=== PATIENT | female | born 1990 | race African-American/Black ===

== ENCOUNTER 2016-04-02 20:23 | Emergency (ER) | payer OTHER ==
[~2016-04-02] VITALS: Ht 160 cm; Wt 77.1 kg
[~2016-04-02 20:23] MED LIST: CIPR500T94 PO; ELTR75TA PO; OXYC-323 PO; PHEN-318 PO
[2016-04-02 20:30] VITALS: BP 119/67
[2016-04-02] MEDS ORDERED: FLUT9.9S NS (21:23)
[2016-04-02] MEDS ORDERED: AZIT250T PO (21:23)
--- NOTE | 2016-04-02 21:23 | PHYS DOC ---
Past Medical History Past Medical History: Anemia, STD, Other Additional Past Medical Histor: Aplastic anemia, Gonorrhea of the throat, Paroxysmal nocturnal hemoglobinuri Past Surgical History: Other Additional Past Surgical Histo: Mediport right anterior chest. Additional Information: nonsmoker Alcohol Use: None Drug Use: None Adult General Chief Complaint Chief Complaint: Congestion HPI HPI Patient is a 25 year old female who presents with subjective fever and nasal congestion starting last night. She has a frontal headache as well. She denies sore throat, ear pain, shortness breath, vomiting, or diarrhea. Review of Systems Review of Systems Constitutional: Reports subjective fever. Eyes: Denies change in visual acuity, redness, or eye pain. [] HENT: Denies ear pain or sore throat. Reports nasal congestion. Respiratory: Denies cough or shortness of breath. [] Cardiovascular: Denies chest pain, palpitations or edema. [] GI: Denies abdominal pain, nausea, vomiting, bloody stools or diarrhea. [] Integument: Denies rash or skin lesions. [] Neurologic: Denies focal weakness or sensory changes. Reports frontal headache. Allergies Allergies Allergies Coded Allergies Type Severity Reaction Last Updated Verified diphenhydramine Allergy Intermediate 09/29/15 No vancomycin Allergy Intermediate Itching 09/29/15 Yes Physical Exam Physical Exam Constitutional: Well developed, well nourished, no acute distress, non-toxic appearance. [] HENT: Normocephalic, atraumatic, bilateral external ears normal, oropharynx moist, no oral exudates, nose normal. Bilateral TMs without erythema or bulging. There is no posterior pharyngeal erythema or tonsillar edema. Bilateral nasal turbinates are significantly swollen and erythematous with purulent drainage. Eyes: PERRLA, EOMI, conjunctiva normal, no discharge. [] Neck: Normal range of motion, no tenderness, supple, no stridor. [] Cardiovascular: Heart rate regular rhythm, no murmur [] Lungs & Thorax: Bilateral breath sounds clear to auscultation without wheezes, rales, or rhonchi. Skin: Warm, dry, no erythema, no rash. [] Neurologic: Alert and oriented X 3, normal motor function, normal sensory function, no focal deficits noted. [] Psychologic: Affect normal, judgement normal, mood normal. [] Current Patient Data Vital Signs Vital Signs Date Time Temp Pulse Resp B/P Pulse Ox O2 Delivery O2 Flow Rate FiO2 04/02/16 20:30 98.5 97 18 96 Room Air 98.5 EKG EKG [] Radiology/Procedures Radiology/Procedures [] Course & Med Decision Making Course & Med Decision Making Pertinent Labs and Imaging studies reviewed. (See chart for details) [] Dragon Disclaimer Dragon Disclaimer This electronic medical record was generated, in whole or in part, using a voice recognition dictation system. Departure Departure Impression: Primary Impression: Sinusitis Disposition: HOME, SELF-CARE Condition: STABLE Referrals: NO PCP (PCP) Patient Instructions: Sinusitis, [id number] Additional Instructions: Please complete all the prescribed antibiotic. Please use the prescribed nose spray daily to help decrease nasal congestion and swelling. Please follow-up with your doctor within the next week. Return to the emergency department with any new or concerning symptoms. Scripts Fluticasone Propionate (Flonase Allergy Relief)9.9 Ml [place].susp2 Sprays NS DAILY #1 BOTTLE Prov:PHU BLACKMON 04/02/16 Azithromycin (Zithromax)250 Mg Tablet1 Pkg PO UD #6 TAB Prov:PHU BLACKMON 04/02/16 Problem Qualifiers Primary Impression: Sinusitis Sinusitis location: frontal Chronicity: acute Recurrence: not specified as recurrent Qualified Code: J01.10 - Acute frontal sinusitis, unspecified PHU BLACKMON Apr 02, 2016 21:23
== END 2016-04-02 21:35 | disposition home or self-care (01) ==
LOC: ER 20:23
DX: J32.9 Chronic sinusitis, unspecified (principal); R50.9 Fever, unspecified; Z88.1 Allergy status to other antibiotic agents; Z88.8 Allergy status to other drugs, medicaments and biological substances
CPT/HCPCS: 99283

== ENCOUNTER 2016-04-22 18:50 | Inpatient (IN) | payer OTHER ==
[~2016-04-22] VITALS: Ht 236.2 cm; Wt 756.1 kg
[~2016-04-22 18:50] MED LIST changes: +AZIT250T PO; +FLUT9.9S NS
[2016-04-22] MEDS ORDERED: KETOROLAC TROMETHAMINE 30 MG/ML SYRINGE. IV ONE (20:30)
[2016-04-22] MEDS ORDERED: IV NORMAL SALINE 1000ML BAG 1,000 ML IV ONE (20:30)
[2016-04-22 20:38] LABS: BILIRUBIN,URINE NEGATIVE (NEG); GLUCOSE,URINE NEGATIVE (NEG); NITRITE,URINE NEGATIVE (NEG); PROTEIN,URINE NEGATIVE (NEG-TRACE)
[2016-04-22 20:58] LABS: BACTERIA,URINE 0 /HPF (0-FEW); RBC,URINE 0 /HPF (0-2); WBC,URINE OCC /HPF (0-4)
[2016-04-22 20:59] LABS: SQUAMOUS EPITHELIAL CELL,UR MOD /LPF
[2016-04-22 21:07] LABS: BASO % 0 % (0-3); EOS % 0 % (0-3); LYMPH # 1.1 x10^3/uL (1.0-4.8); LYMPH % 64 % (24-48); MEAN CORPUSCULAR HEMOGLOBIN 43 pg (25-35); MEAN CORPUSCULAR HGB CONC 34 g/dL (31-37); MEAN CORPUSCULAR VOLUME 127 fL (79-100); MONO % 2 % (0-9); NEUT % 34 % (31-73); PLATELET COUNT 33 x10^3/uL (140-400); RED BLOOD COUNT 1.59 x10^6/uL (3.50-5.40); RED CELL DISTRIBUTION WIDTH 15.6 % (11.5-14.5)
[2016-04-22 21:12] LABS: CALCIUM 8.8 mg/dL (8.5-10.1); CREATININE 0.7 mg/dL (0.6-1.0); GFR 123.4; POTASSIUM 3.5 mmol/L (3.5-5.1)
[2016-04-22 21:17] LABS: ALBUMIN 4.1 g/dL (3.4-5.0); ALBUMIN/GLOBULIN RATIO 1.3 (1.0-1.7); TOTAL BILIRUBIN 0.8 mg/dL (0.2-1.0); TOTAL PROTEIN 7.2 g/dL (6.4-8.2)
[2016-04-22 21:21] LABS: HEMATOCRIT 20.2 % (36.0-47.0); HEMOGLOBIN 6.8 g/dL (12.0-15.5); WHITE BLOOD COUNT 1.8 x10^3/uL (4.0-11.0)
--- NOTE | 2016-04-22 21:22 | PHYS DOC ---
Past Medical History Past Medical History: Other Additional Past Medical Histor: PAROXSYMAL AND NOCTURNAL HEMOGLOBINURIA, APLASTIC ANEMIA Past Surgical History: Other Additional Past Surgical Histo: PORT FOR CHEMO Alcohol Use: None Drug Use: None Adult General Chief Complaint Chief Complaint: PAIN CONTROL HPI HPI 25-year-old female with a history of aplastic anemia presents stating she feels some body aches and generalized fatigue. She denies any chest pain or shortness of breath. She denies dyspnea on exertion. She has not had any bleeding. [] Review of Systems Review of Systems Constitutional: Denies fever or chills [] Eyes: Denies change in visual acuity, redness, or eye pain [] HENT: Denies nasal congestion or sore throat [] Respiratory: Denies cough or shortness of breath [] Cardiovascular: No additional information not addressed in HPI [] GI: Denies abdominal pain, nausea, vomiting, bloody stools or diarrhea [] : Denies dysuria or hematuria [] Musculoskeletal: Body aches [] Integument: Denies rash or skin lesions [] Neurologic: Denies headache, focal weakness or sensory changes [] Endocrine: Denies polyuria or polydipsia [] Current Medications Current Medications Current Medications Medications (Trade) Dose Ordered Sig/Sherman Start Time Stop Time Status Last Admin Dose Admin Acetaminophen (Tylenol) 650 mg PRN Q4HRS PRN 04/22/16 21:30 04/23/16 16:40 DC 04/23/16 09:25 650 MG Fentanyl Citrate 50 mcg 50 mcg PRN Q2HR PRN 04/22/16 21:30 04/23/16 16:40 DC 04/23/16 09:26 50 MCG Ketorolac Tromethamine (Toradol) 30 mg 1X ONCE 04/22/16 20:30 04/22/16 20:31 DC 04/22/16 20:57 30 MG Ondansetron HCl (Zofran) 4 mg PRN Q8HRS PRN 04/22/16 21:30 04/23/16 16:40 DC Sodium Chloride (Iv Sodium Chloride 0.9% 1000ml Bag) 1,000 ml @ 150 mls/hr Q6H40M 04/22/16 21:30 04/23/16 16:40 DC 04/22/16 22:49 150 MLS/HR Allergies Allergies Allergies Coded Allergies Type Severity Reaction Last Updated Verified vancomycin Allergy Intermediate Itching 09/29/15 Yes Physical Exam Physical Exam Constitutional: Well developed, well nourished, no acute distress, non-toxic appearance. [] HENT: Normocephalic, atraumatic, bilateral external ears normal, oropharynx moist, no oral exudates, nose normal. [] Eyes: PERRLA, EOMI, conjunctiva normal, no discharge. [] Neck: Normal range of motion, no tenderness, supple, no stridor. [] Cardiovascular:Heart rate regular rhythm, no murmur [] Lungs & Thorax: Bilateral breath sounds clear to auscultation [] Abdomen: Bowel sounds normal, soft, no tenderness, no masses, no pulsatile masses. [] Skin: Warm, dry, no erythema, no rash. [] Back: No tenderness, no CVA tenderness. [] Extremities: No tenderness, no cyanosis, no clubbing, ROM intact, no edema. [] Neurologic: Alert and oriented X 3, normal motor function, normal sensory function, no focal deficits noted. [] Psychologic: Affect normal, judgement normal, mood normal. [] Current Patient Data Vital Signs Vital Signs Date Time Temp Pulse Resp B/P Pulse Ox O2 Delivery O2 Flow Rate FiO2 04/22/16 19:04 98.4 93 18 100 Room Air 98.4 Lab Values Laboratory Tests Test 04/22/16 19:11 04/22/16 19:58 04/22/16 20:51 POC Urine HCG, Qualitative Hcg negative (Negative) Urine Color Yellow Urine Clarity Clear Urine pH 8.0 Urine Specific [place] 1.020 Urine Protein Negativemg/dL (NEG-TRACE) Urine Glucose (UA) Negativemg/dL (NEG) Urine Ketones (Stick) Negativemg/dL (NEG) Urine Blood Negative (NEG) Urine Nitrite Negative (NEG) Urine Bilirubin Negative (NEG) Urine Urobilinogen Dipstick 1.0mg/dL (0.2 mg/dL) Urine Leukocyte Esterase Negative (NEG) Urine RBC 0/HPF (0-2) Urine WBC Occ/HPF (0-4) Urine Squamous Epithelial Cells Mod/LPF Urine Bacteria 0/HPF (0-FEW) Urine Mucus Mod/LPF White Blood Count 1.8x10^3/uL (4.0-11.0) *L Red Blood Count 1.59x10^6/uL (3.50-5.40) L Hemoglobin 6.8g/dL (12.0-15.5) *L Hematocrit 20.2% (36.0-47.0) *L Mean Corpuscular Volume 127fL (79-100) H Mean Corpuscular Hemoglobin 43pg (25-35) H Mean Corpuscular Hemoglobin Concent 34g/dL (31-37) Red Cell Distribution Width 15.6% (11.5-14.5) H Platelet Count 33x10^3/uL (140-400) L Neutrophils (%) (Auto) 34% (31-73) Lymphocytes (%) (Auto) 64% (24-48) H Monocytes (%) (Auto) 2% (0-9) Eosinophils (%) (Auto) 0% (0-3) Basophils (%) (Auto) 0% (0-3) Neutrophils # (Auto) 0.6x10^3uL (1.8-7.7) L Lymphocytes # (Auto) 1.1x10^3/uL (1.0-4.8) Monocytes # (Auto) 0.0x10^3/uL (0.0-1.1) Eosinophils # (Auto) 0.0x10^3/uL (0.0-0.7) Basophils # (Auto) 0.0x10^3/uL (0.0-0.2) Segmented Neutrophils % 37% (35-66) Lymphocytes % 60% (24-48) H Monocytes % 1% (0-10) Promyelocytes % % (0-0) Blast Cells % (Manual) 2% (0-0) H Toxic Granulation Slight Platelet Estimate Decreased (ADEQUATE) Polychromasia Slight Hypochromasia Slight Ovalocytes Occ Sodium Level 143mmol/L (136-145) Potassium Level 3.5mmol/L (3.5-5.1) Chloride Level 109mmol/L (98-107) H Carbon Dioxide Level 25mmol/L (21-32) Anion Gap 9 (6-14) Blood Urea Nitrogen 9mg/dL (7-20) Creatinine 0.7mg/dL (0.6-1.0) Estimated GFR (Cockcroft-Gault) 123.4 BUN/Creatinine Ratio 13 (6-20) Glucose Level 97mg/dL (70-99) Calcium Level 8.8mg/dL (8.5-10.1) Total Bilirubin 0.8mg/dL (0.2-1.0) Aspartate Amino Transferase (AST) 10U/L (15-37) L Alanine Aminotransferase (ALT) 14U/L (14-59) Alkaline Phosphatase 55U/L (46-116) Total Protein 7.2g/dL (6.4-8.2) Albumin 4.1g/dL (3.4-5.0) Albumin/Globulin Ratio 1.3 (1.0-1.7) Laboratory Tests 04/22/16 20:51 Laboratory Tests 04/22/16 20:51 EKG EKG [] Radiology/Procedures Radiology/Procedures [] Course & Med Decision Making Course & Med Decision Making Pertinent Labs and Imaging studies reviewed. (See chart for details) [] Dragon Disclaimer Dragon Disclaimer This electronic medical record was generated, in whole or in part, using a voice recognition dictation system. Departure Departure Impression: Primary Impression: Symptomatic anemia Disposition: 09 ADMITTED INPATIENT Admitting Physician: Xenia Younger Condition: STABLE Referrals: NO PCP (PCP) GINA BRYANT DO Apr 22, 2016 21:22
[2016-04-22] MEDS ORDERED: IV NORMAL SALINE 1000ML BAG 1,000 ML IV SCH (21:30)
[2016-04-22] MEDS ORDERED: ACETAMINOPHEN 325 MG TABLET. PO PRN (21:30)
[2016-04-22] MEDS ORDERED: ONDANSETRON PF 4 MG/2 ML VIAL. IV PRN (21:30)
[2016-04-22 21:52] LABS: % BLASTS 2 % (0-0); HYPOCHROMIA SLIGHT; OVALOCYTES OCC; PLT ESTIMATE DECREASED (ADEQUATE); POLYCHROMASIA SLIGHT; TOXIC GRANULATION SLIGHT
[2016-04-22] MEDS: FENTANYL PF 100 MCG/2 ML VIAL. IV PRN (22:50)
--- NOTE | 2016-04-22 23:57 | ACF ---
Admission Forms Criteria ANEMIA, IRON DEFICIENCY OR UNSPECIFIED Clinical Indications for Inpatient Care (Place 'X' for any and all applicable criteria): Admission is indicated for ANY ONE of the following(1)(2)(3)(4)(5)(6)(7): [X] I. Inpatient admission required rather than observation care (Also use Anemia, Iron Deficiency or Unspecified: Observation Care guideline as appropriate) because of ANY ONE of the following: [] a) Hemodynamic instability that is severe or persistent [] b) Active bleeding that cannot be rapidly controlled [] c) CVS symptoms (i.e., dyspnea, chest pain, heart failure) that are severe or persistent [] d) Neurologic symptoms (i.e., cognitive impairment, recurrent syncope or near syncope) that are severe or persistent [] e) Cardiac arrhythmias of immediate concern [] f) Acute peripheral ischemia (e.g., pulseless, cool, mottled, or cyanotic extremity) [X] g) High-risk low platelet count [] h) Acute renal failure [] i) Ongoing transfusion for blood loss (greater than 2 units) [] j) IV fluid to replace significant ongoing (eg, >24 hours) losses (> 3 L/m2 per day) [] k) Pulmonary artery catheter monitoring [] l) Supplemental oxygen or respiratory treatments for over 24 hours that are performable only in acute inpatient setting [] m) Immediate inpatient surgery [] n) Other condition, treatment or monitoring requiring inpatient admission [] II Active massive hemorrhage [] III. Active hemolysis with rapidly progressive anemia [A](6) Extended stay beyond goal length of stay may be needed for (17)(18) []a) Diagnosed cause of anemia requiring longer hospitalization (eg, active GI bleeding, immune hemolysis requiring electrophoresis, complications of malignancy requiring acute care []b) Continued emergent anemia indicators (23) []c) Transfusion reactions []d) Associated leukopenia or thrombocytopenia needing inpatient care []e) Active comorbidities (eg, renal failure, heart failure) The original [facility] Care [facility] content created by [facility] has been revised. The portions of the content which have been revised are identified through the use of italic text or in bold. [facility] Guidelines has neither reviewed nor approved the modified material. All other unmodified content is copyright [facility] Care [employer]. Please see references footnoted in the original [facility] edition 2016 Admission Criteria Met?: Yes PATRICIA WOO Apr 22, 2016 23:57
[2016-04-23] VITALS (12 sets, daily range): BP systolic 96–111; BP diastolic 47–75
[2016-04-23] MEDS: FENTANYL PF 100 MCG/2 ML VIAL. IV PRN ×3 (01:13→09:26)
--- NOTE | 2016-04-23 01:41 | EKG ---
[facility] [address] [place] [address] Test Date: 2016-04-23 Test Time: 00:34:43 Pat Name: NATALYA GOTTI Department: Room: [facility] Gender: F Truck Loader: ELISE : 1990 Requested By: KANIKA ANN Order Number: [id number] Reading MD: Lorin Ramires Measurements Intervals [place] Rate: 59 P: 56 FL: 164 QRS: 63 QRSD: 82 T: 68 QT: 436 QTc: 432 Interpretive Statements SINUS RHYTHM NORMAL ECG Electronically Signed On 04-24-2016 21:07:30 CDT by Lorin Ramires
[2016-04-23 07:16] LABS: BASO % 1 % (0-3); EOS % 1 % (0-3); HEMATOCRIT 25.8 % (36.0-47.0); HEMOGLOBIN 8.8 g/dL (12.0-15.5); LYMPH # 1.6 x10^3/uL (1.0-4.8); LYMPH % 71 % (24-48); MEAN CORPUSCULAR HEMOGLOBIN 37 pg (25-35); MEAN CORPUSCULAR HGB CONC 34 g/dL (31-37); MEAN CORPUSCULAR VOLUME 107 fL (79-100); MONO % 2 % (0-9); NEUT % 25 % (31-73); PLATELET COUNT 30 x10^3/uL (140-400); RED BLOOD COUNT 2.41 x10^6/uL (3.50-5.40); RED CELL DISTRIBUTION WIDTH 28.9 % (11.5-14.5); WHITE BLOOD COUNT 2.2 x10^3/uL (4.0-11.0)
[2016-04-23 07:18] LABS: CALCIUM 8.2 mg/dL (8.5-10.1); CREATININE 0.6 mg/dL (0.6-1.0); GFR 147.4; POTASSIUM 3.8 mmol/L (3.5-5.1)
[2016-04-23 08:35] LABS: % SAT IRON 97 % (15-34); IRON,SERUM 189 ug/dL (50-170)
--- NOTE | 2016-04-23 08:59 | PDOC ---
Provider Note Provider Note Onc consult dictated- [id number] Aplastic Anemia- On promacta as outpt [facility]- On eculizumab at [facility], next dose 05/01 Labs at baseline. Sx improved after transfusion. Ok to DC from heme standpoint, f/u next week as planned. FARZANA BASURTO DO Apr 23, 2016 08:59
[2016-04-23] MEDS ORDERED: OXYCODONE/APAP 5/325 TABLET. PO PRN (11:45)
[2016-04-23] MEDS ORDERED: HEPARIN PF 500 UNIT/5 ML DISP.SYRIN. IV SCH (13:47)
--- NOTE | 2016-04-23 14:21 | SSS ---
ADMIT DATE: 04/23/2016 CHIEF COMPLAINT: Weakness and bodyaches. HISTORY OF PRESENT ILLNESS: The patient is a pleasant 25-year-old female who has aplastic anemia. She presented to the ER last night with body aches and weakness and fatigue, was noted to have a hemoglobin of 6.5, admitted the patient overnight for observation. This morning, she has been transfused, her hemoglobin is up to 6.5. We plan to discharge. PAST MEDICAL HISTORY: Aplastic anemia. ALLERGIES: VANCOMYCIN AND BENADRYL. FAMILY HISTORY: Coronary artery disease. SOCIAL HISTORY: She does not drink, smoke or take drugs. MEDICATIONS: Reviewed, please refer to the MRAD. REVIEW OF SYSTEMS: GENERAL: No history of weight change, weakness or fevers. SKIN: No bruising, hair changes or rashes. EYES: No blurred, double or loss of vision. NOSE AND THROAT: No history of nosebleeds, hoarseness or sore throat. HEART: No history of palpitations, chest pain or shortness of breath on exertion. LUNGS: Denies cough, hemoptysis, wheezing or shortness of breath. GASTROINTESTINAL: Denies changes in appetite, nausea, vomiting, diarrhea or constipation. GENITOURINARY: No history of frequency, urgency, hesitancy or nocturia. NEUROLOGIC: Denies history of numbness, tingling, tremor or weakness. PSYCHIATRIC: No history of panic, anxiety or depression. ENDOCRINE: No history of heat or cold intolerance, polyuria or polydipsia. EXTREMITIES: Denies muscle weakness, joint pain, pain on walking or stiffness. PHYSICAL EXAMINATION: VITAL SIGNS: Stable. GENERAL: She is alert, cooperative. HEART: Normal S1, S2. LUNGS: Clear. ABDOMEN: Soft. EXTREMITIES: No edema. SKIN: No rashes. PSYCHIATRIC: She is stable. VASCULAR: Good capillary refill. ENDOCRINE: No thyromegaly. LYMPHATICS: No cervical nodes. HEMATOPOIETIC: No bruising. ASSESSMENT AND PLAN: Acute on chronic aplastic anemia with resolution with transfusion. The patient was admitted overnight. We consulted hem/onc. They are okay with going home. We plan to discharge. DISPOSITION: Home. ACTIVITY: As tolerated. DIET: Low sodium. MEDICATIONS: Please see the MRAD. Total time 31 minutes. NIAL K. CASTLE, DO DR: DIANA/trae JOB#: [id number] / [id number]
--- NOTE | 2016-04-23 23:56 | CONS ---
DATE OF CONSULTATION: 04/23/2016 REFERRING PROVIDER: Dr. Echavarria. REASON FOR CONSULTATION: Aplastic anemia/paroxysmal nocturnal hemoglobinuria. HISTORY OF PRESENT ILLNESS: The patient is a 25-year-old female who was diagnosed at the age of 10 with aplastic anemia. She has previously required ATG/cyclosporine/prednisone for this. She was diagnosed in 2011, also with paroxysmal nocturnal hemoglobinuria and has been on eculizumab q. 2 weeks for this. Her oncology care is managed by Dr. Kiarn and she was last seen in his clinic on 04/03/2016. She presented with myalgias and fatigue. Her hemoglobin baseline is around 7.5 and her hemoglobin had dropped to 6.8. She has no other systemic symptoms of any viral infections. She generally takes Promacta for her aplastic anemia. She feels better after her transfusion overnight. PAST MEDICAL HISTORY: [facility], aplastic anemia, hepatic vein thrombosis. PAST SURGICAL HISTORY: Negative. FAMILY HISTORY: Mom and dad have hypertension, otherwise negative. SOCIAL HISTORY: She denies any tobacco, alcohol or drug use. ALLERGIES: BENADRYL AND VANCOMYCIN. CURRENT MEDICATIONS: Tylenol, fentanyl, Zofran, and normal saline. REVIEW OF SYSTEMS: A 10-point review of systems completed and unremarkable with the exception of the myalgias and fatigue, which are improved overnight. PHYSICAL EXAMINATION: VITAL SIGNS: Temperature 97.9, pulse 63, respiratory rate 18, blood pressure 106/61 with 100% O2 on room air. GENERAL: She is alert and oriented, but does appear fatigued, though it was just after I woke her up this morning. She is not in any distress. HEENT: Extraocular muscles are intact. No scleral icterus. Mucous membranes are moist. CARDIOVASCULAR: Heart is regular in rhythm and rate. LUNGS: Clear to auscultation bilaterally. ABDOMEN: Soft, nontender. EXTREMITIES: No edema. NEUROLOGIC: No focal deficits. IMAGING AND LABS: CBC 1.7, hemoglobin 7.5, platelet 34. This is unchanged from her baseline labs one month ago with the exception of her initial hemoglobin was 7.5, now it is down to 6.8. CMP was unremarkable. UA and chest x-ray also unremarkable. I added on iron studies, which have returned normal. B12 and folic acid are pending. ASSESSMENT AND PLAN: The patient is a 25-year-old female with the following medical problems: 1. History of aplastic anemia on Promacta 150 mg daily. She is aware that this is not carried in the hospital, so she will resume it when she discharges. 2. Paroxysmal nocturnal hemoglobinuria. She is on eculizumab every 2 weeks with her next dose planned on 05/01/2016. This is also a very specialized medicine she can only receive at [facility]. 3. Acute on chronic anemia. Her labs and symptoms have greatly improved with transfusion of blood overnight. Iron , B12, and folic acid returned normal as well. From a hematologic standpoint, she can be discharged at any time. She will resume care with her oncologist next week for ongoing Promacta and eculizumab. I alerted Dr. Kiran of her admission as well. FARZANA BASURTO DO DR: MO/trae JOB#: [id number] / [id number] YOLIE
== END 2016-04-23 14:22 | disposition home or self-care (01) | DRG 810 ==
LOC: ER 18:50 → 5 NORTH 21:30
PROVIDERS: ADMIT Internal Medicine; ATTEND Internal Medicine
PROC: 30233N1 Transfusion of Nonautologous Red Blood Cells into Peripheral Vein, Percutaneous Approach (ICD-10-PCS; principal; 2016-04-23)
DX: D61.9 Aplastic anemia, unspecified (principal); D59.5 Paroxysmal nocturnal hemoglobinuria [Marchiafava-Micheli]; Z82.49 Family history of ischemic heart disease and other diseases of the circulatory system; Z88.1 Allergy status to other antibiotic agents; Z88.8 Allergy status to other drugs, medicaments and biological substances; Z86.718 Personal history of other venous thrombosis and embolism
CPT/HCPCS: 36415; 80048; 80053; 81001; 81025; 82608; 82728; 82746; 83540; 83550; 85007; 85027; 86850; 86900; 86901; 86920; 93005; 96361; 96374; J1885; J3010; J7030; P9016; 99285-25

== ENCOUNTER 2017-01-06 13:37 | Emergency (ER) | payer OTHER ==
[~2017-01-06] VITALS: Ht 160 cm; Wt 68.0 kg
[2017-01-06 13:50] VITALS: BP 117/57
[2017-01-06] MEDS ORDERED: ALPRAZolam 0.5 MG TABLET PO ONE (14:45)
--- NOTE | 2017-01-06 15:22 | PHYS DOC ---
Past Medical History Past Medical History: Other Additional Past Medical Histor: PAROXSYMAL AND NOCTURNAL HEMOGLOBINURIA, APLASTIC ANEMIA Past Surgical History: Other Additional Past Surgical Histo: PORT FOR CHEMO Alcohol Use: None Drug Use: None Adult General Chief Complaint Chief Complaint: ANXIETY/PANIC ATTACK HPI HPI Patient is a 26 year old female with a history of a plastic anemia who presents today stating "I feel my body is excited and anxious". this has been going on since yesterday. Denies any use of illegal drugs. Patient denies any suicidal or homicidal ideation. Denies any chest pain or shortness of breath. She is in the ED with the boyfriend playing on her phone in no distress. She states she would like something to calm her down. Review of Systems Review of Systems Constitutional: Denies fever or chills [] Eyes: Denies change in visual acuity, redness, or eye pain [] HENT: Denies nasal congestion or sore throat [] Respiratory: Denies cough or shortness of breath [] Cardiovascular: No additional information not addressed in HPI [] GI: Denies abdominal pain, nausea, vomiting, bloody stools or diarrhea [] : Denies dysuria or hematuria [] Musculoskeletal: Denies back pain or joint pain [] Integument: Denies rash or skin lesions [] Neurologic: Denies headache, focal weakness or sensory changes [] Psych: anxiety All other systems were reviewed and found to be within normal limits, except as documented in this note. Current Medications Current Medications Current Medications Medications (Trade) Dose Ordered Sig/Sherman Start Time Stop Time Status Last Admin Dose Admin Alprazolam (Xanax) 0.5 mg 1X ONCE 01/06/17 14:45 01/06/17 14:46 DC 01/06/17 14:52 0.5 MG Allergies Allergies Allergies Coded Allergies Type Severity Reaction Last Updated Verified diphenhydramine Allergy Intermediate 04/23/16 Yes vancomycin Allergy Intermediate Itching 09/29/15 Yes Physical Exam Physical Exam Constitutional: Well developed, well nourished, no acute distress, non-toxic appearance. [] HENT: Normocephalic, atraumatic, bilateral external ears normal, oropharynx moist, no oral exudates, nose normal. [] Eyes: PERRLA, EOMI, conjunctiva normal, no discharge. [] Neck: Normal range of motion, no tenderness, supple, no stridor. [] Cardiovascular:Heart rate regular rhythm, no murmur [] Lungs & Thorax: Bilateral breath sounds clear to auscultation [] Abdomen: Bowel sounds normal, soft, no tenderness, no masses, no pulsatile masses. [] Skin: Warm, dry, no erythema, no rash. [] Back: No tenderness, no CVA tenderness. [] Extremities: No tenderness, no cyanosis, no clubbing, ROM intact, no edema. [] Neurologic: Alert and oriented X 3, normal motor function, normal sensory function, no focal deficits noted. [] Psychologic: Affect normal, judgement normal, mood normal. [] Current Patient Data Vital Signs Vital Signs Date Time Temp Pulse Resp B/P (MAP) Pulse Ox O2 Delivery O2 Flow Rate FiO2 01/06/17 13:50 99.8 113 16 98 Room Air 99.8 EKG EKG [] Radiology/Procedures Radiology/Procedures [] Course & Med Decision Making Course & Med Decision Making Pertinent Labs and Imaging studies reviewed. (See chart for details) Patient is in the ED complaining of anxiety that began yesterday. She states she feels very excited, and would like something to calm her down. She is in no distress. She was given a Xanax and feels better. Recommended following up with [facility] for anxiety as well as her PCP. Provided return precautions and discharged. Taryn Disclaimer Taryn Disclaimer This electronic medical record was generated, in whole or in part, using a voice recognition dictation system. Departure Departure Impression: Primary Impression: Anxiety Disposition: 01 HOME, SELF-CARE Condition: STABLE Referrals: UNKNOWN PCP NAME (PCP) Follow-up with [facility] as soon as you can. [phone] Patient Instructions: Anxiety and Panic Attacks, [id number] Additional Instructions: You were seen for anxiety. Please follow-up with [facility] as soon as he can for anxiety. Return to the ED symptoms worsen. ARIAN STYLES APRN Jan 06, 2017 15:22
== END 2017-01-06 15:32 | disposition home or self-care (01) ==
LOC: ER 13:37
DX: F41.9 Anxiety disorder, unspecified (principal); Z88.8 Allergy status to other drugs, medicaments and biological substances; Z88.1 Allergy status to other antibiotic agents
CPT/HCPCS: 99284

== ENCOUNTER 2017-05-23 08:29 | Emergency (ER) | payer OTHER ==
[2017-05-23] MEDS: IV NORMAL SALINE 1000ML BAG 1,000 ML IV ×2 (08:59→10:13)
[2017-05-23] MEDS: ACETAMINOPHEN 325 MG TABLET. PO (09:01)
[2017-05-23] MEDS: 0.9 % SODIUM CHLORIDE 10 ML DISP.SYRIN. IV (09:01)
[2017-05-23 09:05] LABS: URINE HCG POC HCG NEGATIVE (Negative)
[2017-05-23 09:07] LABS: BILIRUBIN,URINE NEGATIVE (NEG); CLARITY,URINE CLEAR; COLOR,URINE YELLOW; GLUCOSE,URINE NEGATIVE (NEG); NITRITE,URINE NEGATIVE (NEG); PH,URINE 5.5; PROTEIN,URINE NEGATIVE (NEG-TRACE)
[2017-05-23] MEDS: IBUPROFEN 200 MG TABLET. PO (09:09)
[2017-05-23 09:10] LABS: BASO % 0 % (0-3); EOS % 1 % (0-3); LYMPH # 0.2 x10^3/uL (1.0-4.8); LYMPH % 23 % (24-48); MEAN CORPUSCULAR HEMOGLOBIN 39 pg (25-35); MEAN CORPUSCULAR HGB CONC 35 g/dL (31-37); MEAN CORPUSCULAR VOLUME 114 fL (79-100); MONO % 2 % (0-9); NEUT # 0.6 x10^3uL (1.8-7.7); NEUT % 74 % (31-73); PLATELET COUNT 26 x10^3/uL (140-400); RED BLOOD COUNT 1.72 x10^6/uL (3.50-5.40); RED CELL DISTRIBUTION WIDTH 25.3 % (11.5-14.5)
[2017-05-23 09:15] LABS: WHITE BLOOD COUNT 0.8 x10^3/uL (4.0-11.0)
[2017-05-23 09:16] LABS: ADD MAN DIFF? YES; HEMATOCRIT 19.6 % (36.0-47.0); HEMOGLOBIN 6.8 g/dL (12.0-15.5)
[2017-05-23 09:21] LABS: INFLUENZA A PATIENT NEGATIVE (NEGATIVE); INFLUENZA B PATIENT NEGATIVE (NEGATIVE); OBC FLU VALID
[2017-05-23 09:22] LABS: LACTIC ACID 1.6 mmol/L (0.4-2.0)
[2017-05-23 09:24] LABS: SQUAMOUS EPITHELIAL CELL,UR MANY /LPF
[2017-05-23 09:24] LABS: TROPONINI < 0.017 ng/mL (0.000-0.055)
[2017-05-23 09:25] LABS: BACTERIA,URINE MODERATE /HPF (0-FEW); NEG OBC UR NEG; POS OBC UR POS; RBC,URINE OCC /HPF (0-2); U PREG PATIENT NEGATIVE (NEG)
[2017-05-23 09:29] LABS: ALBUMIN 4.1 g/dL (3.4-5.0); ALK PHOS 56 U/L (46-116); ALT (SGPT) 14 U/L (14-59); ANION GAP 9 (6-14); AST (SGOT) 11 U/L (15-37); BLOOD UREA NITROGEN 12 mg/dL (7-20); CALCIUM 9.1 mg/dL (8.5-10.1); CARBON DIOXIDE 23 mmol/L (21-32); CHLORIDE 104 mmol/L (98-107); CREATININE 0.8 mg/dL (0.6-1.0); DIRECT BILIRUBIN 0.2 mg/dL (0.0-0.2); GFR 104.9; GLUCOSE 113 mg/dL (70-99); SODIUM 136 mmol/L (136-145); TOTAL BILIRUBIN 1.3 mg/dL (0.2-1.0); TOTAL PROTEIN 7.2 g/dL (6.4-8.2)
[2017-05-23 09:30] LABS: POTASSIUM 2.9 mmol/L (3.5-5.1)
[2017-05-23] MEDS ORDERED: CONTRAST GIVEN MC (09:30)
[2017-05-23 09:31] LABS: CKMB MASS < 0.5 ng/mL (0.0-3.6); CREATINE KINASE 36 U/L (26-192)
[2017-05-23 09:31] LABS: NT-PRO BNP 21 pg/mL (0-124)
[2017-05-23] MEDS: IOHEXOL 300 MG/ML 100ML VIAL. IV (09:44)
[2017-05-23] MEDS: ONDANSETRON PF 4 MG/2 ML VIAL. IV (10:12)
[2017-05-23] MEDS: POTASSIUM CHLORIDE 20 MEQ TABLET.ER. PO (10:13)
[2017-05-23] MEDS: fentaNYL PF VIAL 100 MCG/2 ML VIAL IV (10:29)
[2017-05-23] MEDS: CEFEPIME HCL IV Push 2 GM VIAL. IVP (10:29)
[2017-05-23 11:05] LABS: % LYMPHS 28 % (24-48); % MONOS 1 % (0-10); % SEGS 71 % (35-66); ANISOCYTOSIS MARKED; NUCLEATED RBC 2; PLT ESTIMATE DECREASED (ADEQUATE)
[2017-05-23 11:06] LABS: SCHISTOCYTES OCC
[2017-05-23 11:07] LABS: BURR CELLS OCC
[2017-05-23] MEDS: LORazepam 1 MG TABLET PO (11:46)
[2017-05-23] MEDS ORDERED: CEFEPIME HCL 2 GM in IV DEXTROSE 5% 100 ML IV (14:00)
== END 2017-05-23 14:27 | disposition short-term general hospital (02) ==
LOC: ER 08:29
DX: D61.9 Aplastic anemia, unspecified (principal); R50.81 Fever presenting with conditions classified elsewhere; D59.5 Paroxysmal nocturnal hemoglobinuria [Marchiafava-Micheli]; D70.9 Neutropenia, unspecified; Z88.1 Allergy status to other antibiotic agents
CPT/HCPCS: 36415; 71045; 74177; 80048; 80076; 81001; 81025; 82553; 83605; 83880; 84443; 84484; 85007; 85025; 87040; 87086; 87804; 87804-59; 93005; 96361; 96374; 96375; 99291-25; J0692; J2060; J2405; J3010; J7030; Q9967

== ENCOUNTER 2017-09-02 14:51 | Emergency (ER) | payer OTHER ==
[2017-09-02] MEDS: DEXAMETHASONE 4 MG TABLET PO (15:54)
== END 2017-09-02 16:11 | disposition home or self-care (01) ==
LOC: ER 14:51
DX: H92.01 Otalgia, right ear (principal); H92.02 Otalgia, left ear; G89.29 Other chronic pain; M54.9 Dorsalgia, unspecified; M25.569 Pain in unspecified knee; G43.909 Migraine, unspecified, not intractable, without status migrainosus; Z88.1 Allergy status to other antibiotic agents; Z88.8 Allergy status to other drugs, medicaments and biological substances
CPT/HCPCS: 99283; J8540

== ENCOUNTER 2019-04-15 10:12 | Emergency (ER) | payer OTHER ==
[~2019-04-15] VITALS: Ht 160 cm; Wt 70.0 kg
[~2019-04-15 10:12] MED LIST changes: -OXYC-323 PO; +OXYC1TAB15 PO; +PRED20TA PO
[2019-04-15 12:15] VITALS: BP 134/85
[2019-04-15] MEDS: NAPROXEN 500 MG TABLET PO STA (13:22)
[2019-04-15] MEDS ORDERED: NAPR-514 PO (13:22)
--- NOTE | 2019-04-15 13:22 | PHYS DOC ---
Past Medical History Past Medical History: Other Additional Past Medical Histor: PAROXSYMAL AND NOCTURNAL HEMOGLOBINURIA, APLASTIC ANEMIA Past Surgical History: Other Additional Past Surgical Histo: PORT FOR CHEMO upper R chest Smoking Status: Never Smoker Alcohol Use: Occasionally Drug Use: None Adult General Chief Complaint Chief Complaint: FINGER INJURY HPI HPI Patient is a 28 year old female who presents to the ED today complaining of 10 out of 10 pain to the right thumb that began a week ago after she removed fake nail. Patient reports the pain is on the lateral aspects of the nailbed. States the pain is worse on touching the area. Describes the pain as throbbing and constant. Denies any fever. Denies any drainage from the area. Review of Systems Review of Systems Constitutional: Denies fever or chills [] Musculoskeletal: Reports pain to the right thumb Integument: Denies rash or skin lesions [] Neurologic: Denies headache, focal weakness or sensory changes [] All other systems were reviewed and found to be within normal limits, except as documented in this note. Current Medications Current Medications Current Medications Medications (Trade) Dose Ordered Sig/Sherman Start Time Stop Time Status Last Admin Dose Admin Diphtheria/ Tetanus/Acell Pertussis (ADACEL TDap SYRINGE) 0.5 ml ONCE ONCE 04/15/19 13:15 04/15/19 13:16 Naproxen (Naprosyn) 500 mg 1X STAT 04/15/19 13:08 04/15/19 13:13 DC Allergies Allergies Allergies Coded Allergies Type Severity Reaction Last Updated Verified diphenhydramine Allergy Intermediate 04/23/16 Yes vancomycin Allergy Intermediate Itching 09/29/15 Yes Physical Exam Physical Exam Constitutional: Well developed, well nourished, no acute distress, non-toxic appearance. [] Skin: Warm, dry, no erythema, no rash. [] Back: No tenderness, no CVA tenderness. [] Extremities: Right thumb with no obvious deformity, the nailbed appears to be scratched up from removal of the artificial nail, there is tenderness on the lateral aspect of the right nailbed. There is no obvious redness to warrant infection. Sensation is intact. +2 right radial pulse. Cap refill less than 2 seconds the right thumb. Sensation intact. Neurologic: Alert and oriented X 3, normal motor function, normal sensory function, no focal deficits noted. [] Psychologic: Affect normal, judgement normal, mood normal. [] Current Patient Data Vital Signs Vital Signs Date Time Temp Pulse Resp B/P (MAP) Pulse Ox O2 Delivery O2 Flow Rate FiO2 04/15/19 12:15 98.1 85 20 134/85 (101) 100 Room Air 98.1 EKG EKG [] Radiology/Procedures Radiology/Procedures [] Course & Med Decision Making Course & Med Decision Making Pertinent Labs and Imaging studies reviewed. (See chart for details) This is a 28-year-old female patient presenting to the ED today with a right thumb pain specifically around the nailbed that began a week ago after she removed artificial nail. There is no signs of infection. Recommended ice elevation. Tylenol/Motrin for pain. Discharge to home. Tetanus administered. Dragon Disclaimer Dragon Disclaimer This electronic medical record was generated, in whole or in part, using a voice recognition dictation system. Departure Departure Impression: Primary Impression: Finger pain, right Disposition: HOME, SELF-CARE Condition: STABLE Referrals: NO PCP (PCP) follow up with your doctor in 1-2 weeks Patient Instructions: Musculoskeletal Pain Additional Instructions: You were evaluated in the emergency room with pain and irritation to the right thumb. Consider soaking your right thumb in warm water with Epsom salt twice a day. Try to ice and elevate the extremity. Take naproxen as needed for pain. Follow-up with your own doctor in 1 to 2 weeks. Scripts Naproxen (NAPROXEN) 500 Mg Tablet 1 TAB PO BID for pain, #20 TAB 0 Refills Prov: ARIAN STYLES APRN 04/15/19 ARIAN STYLES APRN Apr 15, 2019 13:22
[2019-04-15] MEDS: DIPH,PERTUSS(ACELL),TET VAC/PF 0.5 ML SYRINGE. VAX IM ONE (13:23)
== END 2019-04-15 13:42 | disposition home or self-care (01) ==
LOC: ER 10:12
DX: M79.644 Pain in right finger(s) (principal); Z88.1 Allergy status to other antibiotic agents; Z88.5 Allergy status to narcotic agent
CPT/HCPCS: 90471; 90715; 99283

== ENCOUNTER 2019-04-21 14:32 | Emergency (ER) | payer OTHER ==
[~2019-04-21] VITALS: Ht 160 cm; Wt 82.0 kg
[~2019-04-21 14:32] MED LIST changes: +NAPR-514 PO
[2019-04-21 14:44] VITALS: BP 135/73
[2019-04-21] MEDS ORDERED: CEPH500C PO (15:26)
[2019-04-21] MEDS ORDERED: NAPR-514 PO (15:26)
--- NOTE | 2019-04-21 15:27 | PHYS DOC ---
Past Medical History Past Medical History: Other Additional Past Medical Histor: PAROXSYMAL AND NOCTURNAL HEMOGLOBINURIA, APLASTIC ANEMIA Past Surgical History: Other Additional Past Surgical Histo: PORT FOR CHEMO upper R chest Smoking Status: Never Smoker Alcohol Use: Occasionally Drug Use: None Adult General Chief Complaint Chief Complaint: THUMB HPI HPI Patient is a 28 year old AA female who presents to the emergency department with complaints of right thumb redness, warmth, and pain for the last week. She denies any injury or trauma to her thumb. Patient denies any drainage from her nailbed. She currently rates her pain a 10 out of 10 on the pain scale, the pain increases if the area is touched. Patient denies taking any medication for relief of pain prior to arrival. She also denies any fever, chills, body aches, cough, shortness of breath, nausea, vomiting, diarrhea, abdominal pain, numbness, or tingling. Review of Systems Review of Systems Complete ROS is negative unless otherwise noted in HPI. Allergies Allergies Allergies Coded Allergies Type Severity Reaction Last Updated Verified diphenhydramine Allergy Intermediate 04/23/16 Yes vancomycin Allergy Intermediate Itching 09/29/15 Yes Physical Exam Physical Exam See Above Constitutional: Well developed, well nourished, no acute distress, non-toxic appearance. [] HENT: Normocephalic, atraumatic, bilateral external ears normal, oropharynx moist, no oral exudates, nose normal. [] Eyes: PERRLA, EOMI, conjunctiva normal, no discharge. [] Neck: Normal range of motion, no stridor. [] Cardiovascular:Heart rate regular rhythm Lungs & Thorax: Respirations even and unlabored, no retractions, no respiratory distress Skin: Warm, dry; erythema and warmth noted to medial aspect of right thumb at the nailbed, consistent with cellulitis of thumb, possible paronychia Extremities: No cyanosis, ROM intact, no edema. [] Neurologic: Alert and oriented X 3, no focal deficits noted. [] Psychologic: Affect normal, judgement normal, mood normal. [] Current Patient Data Vital Signs Vital Signs Date Time Temp Pulse Resp B/P (MAP) Pulse Ox O2 Delivery O2 Flow Rate FiO2 04/21/19 14:44 98.4 94 16 135/73 (93) 99 Room Air 98.4 EKG EKG [] Radiology/Procedures Radiology/Procedures The right thumb was cleansed with alcohol and a 20-gauge needle was used to lift the cuticle from the nailbed, no purulent drainage or bloody discharge was present with this procedure. No blood loss, patient tolerated procedure well, minimal pain. Course & Med Decision Making Course & Med Decision Making Pertinent Labs and Imaging studies reviewed. (See chart for details) [] Dragon Disclaimer Dragon Disclaimer This electronic medical record was generated, in whole or in part, using a voice recognition dictation system. Departure Departure Impression: Primary Impression: Cellulitis of right thumb Disposition: HOME, SELF-CARE Condition: STABLE Referrals: NO PCP (PCP) Patient Instructions: Cellulitis, [id number] Additional Instructions: Fill the prescription(s) and use as directed. You may take tylenol as needed for pain. Apply warm, moist packs to the area 3-4 times a day to help decrease discomfort. Follow up with your primary care doctor or return to the ER in 48 hours to have the site rechecked. Return to the ER sooner if your symptoms worsen, or you develop a fever.. Scripts Naproxen (NAPROXEN) 500 Mg Tablet 1 TAB PO BID PRN for PAIN for 10 Days, #20 TAB 0 Refills Prov: MARIA ANTONIA IRAHETA [employer] 04/21/19 Cephalexin (CEPHALEXIN) 500 Mg Capsule 1 CAP PO QID for 7 Days, #28 CAP 0 Refills Prov: MARIA ANTONIA IRAHETA APRN 04/21/19 MARIA ANTONIA IRAHETA APRN Apr 21, 2019 15:27
== END 2019-04-21 15:32 | disposition home or self-care (01) ==
LOC: ER 14:32
DX: L03.011 Cellulitis of right finger (principal); Z88.1 Allergy status to other antibiotic agents; Z88.5 Allergy status to narcotic agent
CPT/HCPCS: 10060; 99283